=== PATIENT | female | born 1980 | race American Indian/Alaskan Native ===

== ENCOUNTER → 2022-02-13 | Outpatient (CLI) | payer OTHER | LOC: MC.RAD 08:23 | DX: Z12.31 Encounter for screening mammogram for malignant neoplasm of breast (principal) ==

== ENCOUNTER → 2023-05-29 | Outpatient (CLI) | payer OTHER | LOC: MC.RAD 11:15 | DX: Z12.31 Encounter for screening mammogram for malignant neoplasm of breast (principal) ==